=== PATIENT | female | born 1995 | race Two or more races ===

== ENCOUNTER 2017-08-15 15:49 | Emergency (ER) | payer MEDICAID ==
[~2017-08-15] VITALS: Ht 165.1 cm; Wt 84.0 kg
[2017-08-15 16:10] VITALS: BP 126/82
[2017-08-15] MEDS ORDERED: DEPER5 PO (16:16)
== END 2017-08-15 19:45 | disposition left against medical advice (07) ==
LOC: ER 15:49
DX: Z53.21 Procedure and treatment not carried out due to patient leaving prior to being seen by health care provider (principal)

== ENCOUNTER 2019-09-20 06:50 | Inpatient (IN) | payer MEDICAID ==
[~2019-09-20] VITALS: Ht 167.6 cm; Wt 91.2 kg
[~2019-09-20 06:50] MED LIST: DEPER5 PO
[2019-09-20] MEDS ORDERED: FENTANYL CITRATE/PF 50MCG/ML 2ML VIAL IV ONE (07:15)
[2019-09-20] MEDS ORDERED: LIDOCAINE HCL 1% 20ML VIAL (Pyxis) INJ INFIL ONE (07:30)
[2019-09-20] MEDS ORDERED: ETOMIDATE 2MG/ML 10ML VIAL IV ONE (07:30)
[2019-09-20 10:21] LABS: BASOPHILS % 0.3 % (0.0-2.0); HEMATOCRIT. 42.3 % (36.0-48.0); HEMOGLOBIN. 14.3 g/dL (12.0-16.0); LYMPHOCYTES % 7.1 % (20.0-50.0); MEAN CORPUSCULAR HEMOGLOBIN 30.3 pg (28.0-32.0); MEAN CORPUSCULAR VOLUME 89.7 fL (81.0-99.0); MEAN PLATELET VOLUME 8.3 fl (7.4-10.4); MONOCYTES % 4.9 % (2.0-8.0); NEUTROPHILS % 87.7 % (40.0-76.0); PLATELET 279 x1000/uL (130-400); RED BLOOD CELL COUNT 4.71 mill/uL (4.2-5.4)
[2019-09-20 10:31] LABS: CHLORIDE 107 mEq/L (98-107)
[2019-09-20] MEDS ORDERED: MORPHINE SULFATE 4 MG/ML CPJ (NOT FOR IM USE) IV ONE (12:00)
[2019-09-20] MEDS ORDERED: DOCUSATE SODIUM 100MG CAPSULE PO PRN (12:15)
[2019-09-20] MEDS ORDERED: GUAIFENESIN 200MG/10ML SUGAR FREE UDC PO PRN (12:15)
[2019-09-20] MEDS ORDERED: MAGNESIUM/ALUMINUM HYDROXIDE/SIMETHICONE 30ML UDC PO PRN (12:15)
[2019-09-20] MEDS ORDERED: ONDANSETRON HCL 4MG/2ML INJ IV PRN (12:15)
[2019-09-20] MEDS ORDERED: IPRATROPIUM/ALBUTEROL 0.5-3(2.5)MG/3ML NEB NEB PRN (12:15)
[2019-09-20] MEDS ORDERED: KETOROLAC 15MG/ML VIAL IV PRN (12:15)
[2019-09-20] MEDS ORDERED: DIPHENHYDRAMINE 50MG/ML VIAL IV PRN (12:15)
[2019-09-20] MEDS ORDERED: ZOLPIDEM TARTRATE 5MG TABLET PO PRN (12:15)
[2019-09-20] MEDS ORDERED: NITROGLYCERIN 0.4MG TABLET SL SL PRN (12:15)
[2019-09-20] MEDS ORDERED: ACETAMINOPHEN 325MG TABLET PO PRN (12:15)
[2019-09-20] MEDS ORDERED: CLONIDINE 0.1MG TABLET PO PRN (12:15)
[2019-09-20] MEDS: DIVALPROEX SODIUM 500MG ER TABLET PO SCH (14:15)
[2019-09-20] MEDS: ENOXAPARIN 30MG/0.3ML SYR SUBCUT SCH (14:16)
[2019-09-20] MEDS ORDERED: CYAN50008 MT (14:31)
[2019-09-20] MEDS ORDERED: RIBO100T3 MT (14:31)
[2019-09-20] MEDS ORDERED: TOP100 MT (14:31)
[2019-09-20 14:38] VITALS: BP 125/68
[2019-09-20] MEDS ORDERED: INFLUENZA VIRUS VACCINE(AFLURIA) 0.5ML SYR IM ONE (15:30)
[2019-09-20] MEDS: MORPHINE SULFATE 4 MG/ML CPJ (NOT FOR IM USE) IV PRN ×3 (16:06→23:55)
[2019-09-20 20:00] VITALS: BP 112/67
[2019-09-20] MEDS: FAMOTIDINE 20MG TABLET PO SCH (20:08)
[2019-09-20] MEDS ORDERED: MORPHINE SULFATE 4 MG/ML CPJ (NOT FOR IM USE) IV PRN (22:30)
[2019-09-20] MEDS: KETOROLAC 15MG/ML VIAL IV PRN (22:36)
[2019-09-21] VITALS: BP 127/84
[2019-09-21] MEDS: ENOXAPARIN 30MG/0.3ML SYR SUBCUT SCH ×2 (00:39→12:26)
[2019-09-21 04:00] VITALS: BP 116/65
[2019-09-21] MEDS: MORPHINE SULFATE 4 MG/ML CPJ (NOT FOR IM USE) IV PRN ×7 (05:51→22:17)
[2019-09-21 06:44] LABS: *AMPHETAMINES SCREEN URINE NEGATIVE (NEGATIVE); *BARBITURATES SCREEN URINE NEGATIVE (NEGATIVE); *BENZODIAZEPINES SCREEN URINE NEGATIVE (NEGATIVE); *COCAINE SCREEN URINE NEGATIVE (NEGATIVE); CANNABINOID URINE SCREEN NEGATIVE (NEGATIVE); PHENCYCLIDINE URINE SCREEN NEGATIVE (NEGATIVE)
[2019-09-21 06:52] LABS: METHADONE URINE SCREEN NEGATIVE (NEGATIVE)
[2019-09-21 06:57] LABS: OPIATES URINE SCREEN PRESUMTIVE POSITIVE (NEGATIVE)
[2019-09-21 08:00] VITALS: BP 117/77
[2019-09-21] MEDS: DIVALPROEX SODIUM 500MG ER TABLET PO SCH (08:22)
[2019-09-21] MEDS: FAMOTIDINE 20MG TABLET PO SCH ×2 (08:22→20:11)
[2019-09-21] MEDS: KETOROLAC 15MG/ML VIAL IV PRN (10:11)
[2019-09-21 12:00] VITALS: BP 118/78
[2019-09-21] MEDS: TRAMADOL 50MG TABLET PO PRN (12:25)
[2019-09-21 16:00] VITALS: BP 111/77
[2019-09-21 20:00] VITALS: BP 121/81
[2019-09-22] MEDS: ENOXAPARIN 30MG/0.3ML SYR SUBCUT SCH ×2 (00:16→12:03)
[2019-09-22 00:37] VITALS: BP 109/67
[2019-09-22] MEDS: MORPHINE SULFATE 4 MG/ML CPJ (NOT FOR IM USE) IV PRN ×8 (01:09→21:01)
[2019-09-22 04:00] VITALS: BP 111/71
[2019-09-22] MEDS: DIVALPROEX SODIUM 500MG ER TABLET PO SCH (07:56)
[2019-09-22] MEDS: FAMOTIDINE 20MG TABLET PO SCH ×2 (07:56→21:01)
[2019-09-22 08:00] VITALS: BP 114/76
[2019-09-22] MEDS: TRAMADOL 50MG TABLET PO PRN ×2 (08:23→16:18)
[2019-09-22 12:00] VITALS: BP 118/87
[2019-09-22 16:00] VITALS: BP 116/73
[2019-09-22] MEDS: KETOROLAC 15MG/ML VIAL IV PRN (18:00)
[2019-09-22 20:00] VITALS: BP 133/87
[2019-09-23] VITALS (7 sets, daily range): BP systolic 108–141; BP diastolic 74–98
[2019-09-23] MEDS: ENOXAPARIN 30MG/0.3ML SYR SUBCUT SCH ×2 (00:28→13:01)
[2019-09-23] MEDS: MORPHINE SULFATE 4 MG/ML CPJ (NOT FOR IM USE) IV PRN ×7 (00:29→22:15)
[2019-09-23] MEDS: DIVALPROEX SODIUM 500MG ER TABLET PO SCH (08:16)
[2019-09-23] MEDS: FAMOTIDINE 20MG TABLET PO SCH ×2 (08:16→21:42)
[2019-09-23] MEDS: KETOROLAC 15MG/ML VIAL IV PRN (13:44)
[2019-09-23 19:21] LABS: UCG SCREEN NEGATIVE
[2019-09-24] VITALS: BP 122/81
[2019-09-24] MEDS: ENOXAPARIN 30MG/0.3ML SYR SUBCUT SCH ×2 (00:39→13:15)
[2019-09-24] MEDS: MORPHINE SULFATE 4 MG/ML CPJ (NOT FOR IM USE) IV PRN ×3 (01:33→08:46)
[2019-09-24 04:00] VITALS: BP 132/82
[2019-09-24] MEDS: FAMOTIDINE 20MG TABLET PO SCH ×2 (08:47→22:21)
[2019-09-24] MEDS: DIVALPROEX SODIUM 500MG ER TABLET PO SCH (08:47)
[2019-09-24] MEDS: DEXT 5%/0.9% NACL 1,000 ML IV SCH (10:48)
[2019-09-24 12:00] VITALS: BP 119/79
[2019-09-24] MEDS ORDERED: BUPIVACAINE/EPINEPH/PF 0.25%/0.0005 10ML ONE (12:42)
[2019-09-24] MEDS ORDERED: BACITRACIN 50,000 UNITS/VIAL ONE (12:43)
[2019-09-24] MEDS ORDERED: VANCOMYCIN HCL 1 GM/VIAL ONE (12:43)
[2019-09-24] MEDS ORDERED: ROPIVACAINE HCL 10MG/ML 20 ML VIAL EPI ONE (13:23)
[2019-09-24] MEDS ORDERED: SUCCINYLCHOLINE CHLORIDE 200MG/10ML IV ONE (13:26)
[2019-09-24] MEDS ORDERED: MIDAZOLAM HCL 2 MG/2 ML VIAL ONE (13:26)
[2019-09-24] MEDS ORDERED: GLYCOPYRROLATE 0.2 MG/ML 2ML VIAL ONE (13:26)
[2019-09-24] MEDS ORDERED: LIDOCAINE HCL/PF 1% 10 MG/ML 5ML VIAL ONE (13:26)
[2019-09-24] MEDS ORDERED: FENTANYL CITRATE/PF 50MCG/ML 2ML VIAL ONE (13:26)
[2019-09-24] MEDS ORDERED: METOCLOPRAMIDE HCL 10MG/2ML VIAL ONE (13:26)
[2019-09-24] MEDS ORDERED: ONDANSETRON HCL 4MG/2ML INJ ONE (13:26)
[2019-09-24] MEDS ORDERED: PROPOFOL 200MG/20ML VIAL IV ONE (13:26)
[2019-09-24] MEDS ORDERED: SODIUM CHLORIDE 0.9% 1,000 ML IV ONE (15:24)
[2019-09-24] MEDS ORDERED: HYDROMORPHONE HCL/PF 2MG/ML CPJ IV PRN (15:30)
[2019-09-24] MEDS ORDERED: MEPERIDINE HCL/PF 25MG/ML CPJ IV PRN ×2 (15:30)
[2019-09-24] MEDS ORDERED: MORPHINE SULFATE 2 MG/ML CPJ (NOT FOR IM USE) IV PRN (15:30)
[2019-09-24] MEDS ORDERED: ONDANSETRON HCL 4MG/2ML INJ IV PRN (15:30)
[2019-09-24] MEDS ORDERED: HYDROCODONE/ACETAMINOPHEN 10/325MG TABLET PO PRN (15:45)
[2019-09-24 16:00] VITALS: BP 154/58
[2019-09-24] MEDS ORDERED: ONDANSETRON INJ IV PRN (16:15)
[2019-09-24] MEDS ORDERED: DIPHENHYDRAMINE INJ IV PRN (16:15)
[2019-09-24] MEDS ORDERED: NALOXONE INJ IV PRN (16:15)
[2019-09-24] MEDS: HYDROMORPHONE PCA 10MG/50ML IV PRN (16:25)
[2019-09-24 20:00] VITALS: BP 111/65
[2019-09-24] MEDS: CEFAZOLIN 2,000 MG in DEXT 5% WATER 100 ML IV SCH (22:21)
[2019-09-25] VITALS: BP 127/71
[2019-09-25] MEDS: ENOXAPARIN 30MG/0.3ML SYR SUBCUT SCH ×3 (01:29→22:11)
[2019-09-25 04:00] VITALS: BP 128/80
[2019-09-25] MEDS: CEFAZOLIN 2,000 MG in DEXT 5% WATER 100 ML IV SCH ×3 (05:41→17:32)
[2019-09-25] MEDS: DEXT 5%/0.9% NACL 1,000 ML IV SCH ×3 (05:42→22:31)
[2019-09-25 08:00] VITALS: BP 128/87
[2019-09-25] MEDS: DIVALPROEX SODIUM 500MG ER TABLET PO SCH (09:15)
[2019-09-25] MEDS: FAMOTIDINE 20MG TABLET PO SCH ×2 (09:15→22:07)
[2019-09-25 12:00] VITALS: BP 124/83
[2019-09-25 16:00] VITALS: BP 127/78
[2019-09-25] MEDS: HYDROMORPHONE PCA 10MG/50ML IV PRN (17:49)
[2019-09-25 20:00] VITALS: BP 119/71
[2019-09-26] VITALS: BP 131/81
[2019-09-26 04:00] VITALS: BP 126/74
[2019-09-26 08:00] VITALS: BP 131/84
[2019-09-26] MEDS: ENOXAPARIN 30MG/0.3ML SYR SUBCUT SCH ×2 (08:18→22:00)
[2019-09-26] MEDS: DIVALPROEX SODIUM 500MG ER TABLET PO SCH (08:19)
[2019-09-26] MEDS: FAMOTIDINE 20MG TABLET PO SCH (08:19)
[2019-09-26] MEDS ORDERED: HYDROCODONE/ACETAMINOPHEN 10/325MG TABLET PO PRN (09:30)
[2019-09-26] MEDS ORDERED: MORPHINE SULFATE 2 MG/ML CPJ (NOT FOR IM USE) IV PRN (09:30)
[2019-09-26] MEDS: MORPHINE SULFATE 2 MG/ML CPJ (NOT FOR IM USE) IV PRN ×3 (09:58→17:54)
[2019-09-26] MEDS: HYDROCODONE/ACETAMINOPHEN 10/325MG TABLET PO PRN ×3 (11:42→22:00)
[2019-09-26 12:00] VITALS: BP 122/78
[2019-09-26 16:00] VITALS: BP 129/83
[2019-09-26] MEDS: DEXT 5%/0.9% NACL 1,000 ML IV SCH (16:05)
[2019-09-26 20:00] VITALS: BP 115/73
[2019-09-27] VITALS: BP 118/71
[2019-09-27] MEDS: FAMOTIDINE 20MG TABLET PO SCH ×3 (00:19→20:47)
[2019-09-27] MEDS: HYDROCODONE/ACETAMINOPHEN 10/325MG TABLET PO PRN ×5 (02:12→20:36)
[2019-09-27 04:00] VITALS: BP 108/71
[2019-09-27 08:00] VITALS: BP 107/78
[2019-09-27] MEDS: ENOXAPARIN 30MG/0.3ML SYR SUBCUT SCH ×2 (09:45→20:47)
[2019-09-27] MEDS: DIVALPROEX SODIUM 500MG ER TABLET PO SCH (09:45)
[2019-09-27 12:00] VITALS: BP 122/77
[2019-09-27 16:00] VITALS: BP 113/78
[2019-09-27 20:27] VITALS: BP 129/81
[2019-09-28] VITALS: BP 107/69
[2019-09-28] MEDS: HYDROCODONE/ACETAMINOPHEN 10/325MG TABLET PO PRN ×2 (02:54→09:49)
[2019-09-28 04:00] VITALS: BP 119/73
[2019-09-28 08:00] VITALS: BP 118/73
[2019-09-28] MEDS ORDERED: HYDR-3282 MT (09:12)
[2019-09-28] MEDS ORDERED: SENN-170 MT (09:12)
[2019-09-28] MEDS: ENOXAPARIN 30MG/0.3ML SYR SUBCUT SCH (09:48)
[2019-09-28] MEDS: FAMOTIDINE 20MG TABLET PO SCH (09:48)
[2019-09-28] MEDS: DIVALPROEX SODIUM 500MG ER TABLET PO SCH (09:48)
[2019-09-28] MEDS ORDERED: HYDR-4009 PO (10:37)
[2019-09-28 12:00] VITALS: BP 129/90
== END 2019-09-28 13:25 | disposition home or self-care (01) | DRG 313 ==
LOC: ER 07:00 → 6EST 11:25 → ENRESERV 12:38
PROVIDERS: ADMIT Internal Medicine; ATTEND Internal Medicine
PROC: 2W3TX1Z Immobilization of Left Foot using Splint (ICD-10-PCS; principal; 2019-09-20)
PROC: 0QSH04Z Reposition Left Tibia with Internal Fixation Device, Open Approach (ICD-10-PCS; 2019-09-24)
DX: S82.852A Displaced trimalleolar fracture of left lower leg, initial encounter for closed fracture (principal); D86.89 Sarcoidosis of other sites; W01.0XXA Fall on same level from slipping, tripping and stumbling without subsequent striking against object, initial encounter; G40.909 Epilepsy, unspecified, not intractable, without status epilepticus; Y93.89 Activity, other specified; Z86.69 Personal history of other diseases of the nervous system and sense organs; Y92.89 Other specified places as the place of occurrence of the external cause; Y99.8 Other external cause status
CPT/HCPCS: 27762; 36415; 73560; 73600; 73700; 76000; 80048; 80305; 81025; 83036; 90686; 93005; 94640; 96374; 97116; 97162; 97530; 99152; 99285; C1893; J0171; J0330; J0690; J1170; J1650; J1885; J2250; J2270; J2405; J2704; J2765; J2795; J3010; J3370; J3490; J7042; J7060; J7070

== ENCOUNTER 2019-10-31 13:46 | Inpatient (IN) | payer MEDICAID ==
[2019-10-31] VITALS: BP 108/66
[~2019-10-31] VITALS: Ht 167.6 cm; Wt 79.4 kg
[~2019-10-31 13:46] MED LIST changes: +CYAN50008 MT; +HYDR-4009 PO; +RIBO100T3 MT; +SENN-170 MT; +TOP100 MT
[2019-10-31] MEDS ORDERED: SODIUM CHLORIDE 0.9% 1,000 ML IV ONE (14:49)
[2019-10-31] MEDS ORDERED: MORPHINE SULFATE 4 MG/ML CPJ (NOT FOR IM USE) IV STA (14:49)
[2019-10-31] MEDS ORDERED: ONDANSETRON HCL 4MG/2ML INJ IV STA (14:49)
[2019-10-31 15:14] LABS: BASOPHILS % 0.4 % (0.0-2.0); HEMATOCRIT. 38.6 % (36.0-48.0); HEMOGLOBIN. 13.1 g/dL (12.0-16.0); LYMPHOCYTES % 32.7 % (20.0-50.0); MEAN CORPUSCULAR HEMOGLOBIN 30.4 pg (28.0-32.0); MEAN CORPUSCULAR VOLUME 89.9 fL (81.0-99.0); MEAN PLATELET VOLUME 7.8 fl (7.4-10.4); MONOCYTES % 6.4 % (2.0-8.0); NEUTROPHILS % 59.5 % (40.0-76.0); PLATELET 309 x1000/uL (130-400); RED BLOOD CELL COUNT 4.29 mill/uL (4.2-5.4); RED CELL DISTRIBUTION WIDTH 13.8 % (11.6-14.6)
[2019-10-31 15:19] LABS: CHLORIDE 104 mEq/L (98-107)
[2019-10-31 15:22] LABS: PARTIAL THROMBOPLASTIN TIME 27.7 sec (23.4-31.0); PROTHROMBIN TIME 10.5 sec (9.6-11.0)
[2019-10-31 15:49] LABS: HCG SCREEN NEGATIVE
[2019-10-31] MEDS ORDERED: VANCOMYCIN 1 G PREMIX 200 ML IV ONE (16:30)
[2019-10-31] MEDS ORDERED: PIPERACILLIN/TAZ 3.375G PREMIX 50 ML IV ONE (16:30)
[2019-10-31] MEDS ORDERED: ACETAMINOPHEN 325MG TABLET PO PRN (18:30)
[2019-10-31] MEDS ORDERED: DIPHENHYDRAMINE 50MG/ML VIAL IV ONE ×2 (18:45→19:15)
[2019-10-31] MEDS ORDERED: METHYLPREDNISOLONE SOD SUCC 125 MG/2 ML VIAL IV ONE (19:15)
[2019-10-31] MEDS ORDERED: HEPARIN 5000 UNITS/ML VIAL SUBCUT SCH (21:00)
[2019-10-31 21:51] VITALS: BP 97/54
[2019-10-31] MEDS: HEPARIN 5000 UNITS/ML VIAL SUBCUT SCH (23:02)
[2019-11-01] MEDS ORDERED: IBUP-2271 MT (00:34)
[2019-11-01] MEDS ORDERED: SUMA25TA9 MT (00:34)
[2019-11-01] MEDS ORDERED: MAGN400C PO (00:34)
[2019-11-01 04:00] VITALS: BP 108/66
[2019-11-01 07:01] LABS: CHLORIDE 106 mEq/L (98-107); HEMATOCRIT. 38.2 % (36.0-48.0); HEMOGLOBIN. 13.1 g/dL (12.0-16.0); MEAN CORPUSCULAR HEMOGLOBIN 30.9 pg (28.0-32.0); MEAN CORPUSCULAR VOLUME 89.9 fL (81.0-99.0); MEAN PLATELET VOLUME 8.4 fl (7.4-10.4); PLATELET 351 x1000/uL (130-400); RED BLOOD CELL COUNT 4.26 mill/uL (4.2-5.4); RED CELL DISTRIBUTION WIDTH 13.4 % (11.6-14.6)
[2019-11-01 08:00] VITALS: BP 104/64
[2019-11-01] MEDS: HEPARIN 5000 UNITS/ML VIAL SUBCUT SCH ×2 (09:15→22:21)
[2019-11-01 12:00] VITALS: BP 105/68
[2019-11-01 13:30] LABS: PLATELET ESTIMATE NORMAL
[2019-11-01 16:00] VITALS: BP 108/72
[2019-11-01] MEDS ORDERED: TETANUS, DIPHTHERIA, PERTUSSIS VAC/PF 0.5ML (>7YR OLD) IM ONE (18:00)
[2019-11-01 20:00] VITALS: BP 141/78
[2019-11-02] VITALS: BP 105/54
[2019-11-02 03:48] VITALS: BP_SYST 107; BP_SYST 144; BP_DIAS 61; BP_DIAS 72
[2019-11-02 08:00] VITALS: BP 99/60
[2019-11-02] MEDS: HEPARIN 5000 UNITS/ML VIAL SUBCUT SCH ×2 (09:00→20:36)
[2019-11-02 12:00] VITALS: BP 122/71
[2019-11-02 16:00] VITALS: BP 107/57
[2019-11-02] MEDS ORDERED: VANCOMYCIN HCL 1 GM/VIAL ONE (16:53)
[2019-11-02] MEDS ORDERED: BUPIVACAINE HCL/PF 0.25% (2.5MG/ML) 10ML ONE (16:53)
[2019-11-02] MEDS ORDERED: BACITRACIN 50,000 UNITS/VIAL ONE (16:54)
[2019-11-02] MEDS ORDERED: FENTANYL CITRATE/PF 50MCG/ML 2ML VIAL ONE ×2 (17:44→18:34)
[2019-11-02] MEDS ORDERED: PROPOFOL 200MG/20ML VIAL IV ONE (17:44)
[2019-11-02] MEDS ORDERED: MIDAZOLAM HCL 2 MG/2 ML VIAL ONE (17:44)
[2019-11-02] MEDS ORDERED: LIDOCAINE HCL/PF 1% 10 MG/ML 5ML VIAL ONE (17:45)
[2019-11-02] MEDS ORDERED: VECURONIUM BROMIDE 10 MG/VIAL IV ONE (17:45)
[2019-11-02] MEDS ORDERED: FLUMAZENIL 0.1 MG/ML 5ML VIAL IV ONE (17:45)
[2019-11-02] MEDS ORDERED: VANCOMYCIN 1500MG in DEXTROSE 5% WATER 250ML IV SCH (18:00)
[2019-11-02] MEDS ORDERED: CEFAZOLIN SODIUM 1000MG/VIAL ONE (18:13)
[2019-11-02] MEDS ORDERED: ONDANSETRON HCL 4MG/2ML INJ ONE (18:24)
[2019-11-02 20:00] VITALS: BP 112/64
[2019-11-02] MEDS: HYDROCODONE/ACETAMINOPHEN 5/325MG TABLET PO PRN (20:29)
[2019-11-02] MEDS ORDERED: CEFAZOLIN SODIUM 1000MG/VIAL IV SCH (22:00)
[2019-11-03] VITALS: BP 94/54
[2019-11-03] MEDS ORDERED: VANCOMYCIN 1 G PREMIX 200 ML IV SCH
[2019-11-03] MEDS: HYDROCODONE/ACETAMINOPHEN 5/325MG TABLET PO PRN ×4 (03:45→23:30)
[2019-11-03 04:00] VITALS: BP 100/61
[2019-11-03] MEDS: VANCOMYCIN 1 G PREMIX 200 ML IV SCH ×3 (06:12→21:20)
[2019-11-03 06:31] LABS: BASOPHILS % 0.2 % (0.0-2.0); EOSINOPHILS % 0.4 % (0.0-5.0); HEMATOCRIT. 36.4 % (36.0-48.0); HEMOGLOBIN. 12.5 g/dL (12.0-16.0); LYMPHOCYTES % 25.9 % (20.0-50.0); MEAN CORPUSCULAR HEMOGLOBIN 30.8 pg (28.0-32.0); MEAN CORPUSCULAR VOLUME 89.3 fL (81.0-99.0); MEAN PLATELET VOLUME 7.9 fl (7.4-10.4); MONOCYTES % 7.7 % (2.0-8.0); NEUTROPHILS % 65.8 % (40.0-76.0); PLATELET 331 x1000/uL (130-400); RED BLOOD CELL COUNT 4.07 mill/uL (4.2-5.4); RED CELL DISTRIBUTION WIDTH 13.7 % (11.6-14.6)
[2019-11-03 06:59] LABS: CHLORIDE 103 mEq/L (98-107)
[2019-11-03 08:00] VITALS: BP 97/70
[2019-11-03] MEDS: HEPARIN 5000 UNITS/ML VIAL SUBCUT SCH ×2 (09:24→21:19)
[2019-11-03 12:00] VITALS: BP 92/52
[2019-11-03] MEDS ORDERED: THROAT LOZENGES-BENZOCAINE/MENTH/CETYLPYRD CL LOZENGES MM PRN (14:00)
[2019-11-03] MEDS ORDERED: GUAIFENESIN 200MG/10ML SUGAR FREE UDC PO PRN (14:00)
[2019-11-03 16:00] VITALS: BP 92/51
[2019-11-03 20:00] VITALS: BP 102/63
[2019-11-04] VITALS (7 sets, daily range): BP systolic 91–109; BP diastolic 55–69
[2019-11-04] MEDS: VANCOMYCIN 1 G PREMIX 200 ML IV SCH ×3 (05:25→22:10)
[2019-11-04] MEDS: HYDROCODONE/ACETAMINOPHEN 5/325MG TABLET PO PRN ×4 (05:26→22:16)
[2019-11-04] MEDS: ONDANSETRON HCL 4MG/2ML INJ IV PRN ×2 (09:34→09:41)
[2019-11-04] MEDS: HEPARIN 5000 UNITS/ML VIAL SUBCUT SCH ×2 (09:34→20:36)
[2019-11-04] MEDS ORDERED: IBUPROFEN 600MG TABLET PO PRN (12:15)
[2019-11-04] MEDS ORDERED: SUMATRIPTAN SUCCINATE 25MG TABLET PO PRN (13:00)
[2019-11-05] VITALS: BP 101/66
[2019-11-05 04:00] VITALS: BP 100/58
[2019-11-05] MEDS: VANCOMYCIN 1 G PREMIX 200 ML IV SCH ×2 (05:59→14:00)
[2019-11-05] MEDS: HYDROCODONE/ACETAMINOPHEN 5/325MG TABLET PO PRN (06:48)
[2019-11-05 07:38] LABS: BASOPHILS % 0.5 % (0.0-2.0); EOSINOPHILS % 2.3 % (0.0-5.0); HEMATOCRIT. 35.7 % (36.0-48.0); HEMOGLOBIN. 12.2 g/dL (12.0-16.0); LYMPHOCYTES % 32.8 % (20.0-50.0); MEAN CORPUSCULAR HEMOGLOBIN 30.6 pg (28.0-32.0); MEAN CORPUSCULAR VOLUME 89.5 fL (81.0-99.0); MONOCYTES % 7.6 % (2.0-8.0); NEUTROPHILS % 56.8 % (40.0-76.0); PLATELET 345 x1000/uL (130-400); RED BLOOD CELL COUNT 3.98 mill/uL (4.2-5.4); RED CELL DISTRIBUTION WIDTH 13.5 % (11.6-14.6)
[2019-11-05 07:58] LABS: CHLORIDE 106 mEq/L (98-107)
[2019-11-05 08:00] VITALS: BP 96/57
[2019-11-05] MEDS: HEPARIN 5000 UNITS/ML VIAL SUBCUT SCH (08:56)
[2019-11-05 12:00] VITALS: BP 96/56
[2019-11-05] MEDS ORDERED: CEPH-569 MT (12:19)
[2019-11-05 15:48] VITALS: BP 96/56
[2019-11-05 16:00] VITALS: BP 108/64
== END 2019-11-05 16:37 | disposition home or self-care (01) | DRG 813 ==
LOC: ER 13:46 → 6EST 18:03 → ENRESERV 19:46
PROVIDERS: ADMIT Family Medicine Adult Medicine; ATTEND Family Medicine Adult Medicine
PROC: 0JBR0ZZ Excision of Left Foot Subcutaneous Tissue and Fascia, Open Approach (ICD-10-PCS; principal; 2019-11-02)
DX: T81.31XA Disruption of external operation (surgical) wound, not elsewhere classified, initial encounter (principal); L97.929 Non-pressure chronic ulcer of unspecified part of left lower leg with unspecified severity; F17.200 Nicotine dependence, unspecified, uncomplicated; J02.9 Acute pharyngitis, unspecified; G43.909 Migraine, unspecified, not intractable, without status migrainosus; T36.8X5A Adverse effect of other systemic antibiotics, initial encounter; Y83.8 Other surgical procedures as the cause of abnormal reaction of the patient, or of later complication, without mention of misadventure at the time of the procedure; Z88.1 Allergy status to other antibiotic agents; Y92.89 Other specified places as the place of occurrence of the external cause; Z71.6 Tobacco abuse counseling; Z79.01 Long term (current) use of anticoagulants; Z79.899 Other long term (current) drug therapy
CPT/HCPCS: 36415; 71045; 73590; 73610; 80048; 80202; 83036; 84703; 85651; 86140; 86850; 86900; 87070; 87075; 90715; 93005; 96365; 99285; C1893; J0690; J1200; J1644; J2250; J2270; J2405; J2543; J2704; J2930; J3010; J3370; J3490; J7030; J7060